=== PATIENT | male | born 1970 | race Caucasian/White ===

== ENCOUNTER 2016-12-16 13:18 | Emergency (ER) | payer OTHER ==
[2016-12-16] MEDS ORDERED: TDAP VACCINE 0.5 ML SUS IM ONE ×2 (14:09→14:30)
[2016-12-16 15:07] VITALS: BP 111/73; PULSE 70; RESP 18; TEMP 98.5; O2SAT 98
[2016-12-16] MEDS ORDERED: BACITRACIN 500 U/GM OIN TOP ONE ×5 (15:25→17:30)
== END 2016-12-16 16:32 | disposition home or self-care (01) | DRG 563 ==
LOC: ED 13:18
DX: S92.021A Displaced fracture of anterior process of right calcaneus, initial encounter for closed fracture (principal); S80.01XA Contusion of right knee, initial encounter; S90.32XA Contusion of left foot, initial encounter; V00.141A Fall from scooter (nonmotorized), initial encounter
CPT/HCPCS: 29515; 73610; 73630; 90471; 90715; 99284